=== PATIENT | male | born 1985 | race Caucasian/White ===

== ENCOUNTER 2018-01-18 06:06 | Day surgery (SDC) | payer SELFPAY ==
[2018-01-18] VITALS (7 sets, daily range): BP systolic 96–121; BP diastolic 58–74; PULSE 58–71; RESP 16–18; TEMP 36.6–37.1; O2SAT 96–99; BMI 22.8
--- NOTE | 2018-01-18 | COLBX_PTH ---
PATIENT: TATO CHAPARRO LOC: EN U#:[id number] AGE/SX: 32/M ROOM: RE01/18/[address]: Dr. Madhu Nelson MD : 1985 BED: DIS: 01/18/2018 SPEC #: [id number] RECD: 01/18/18 11:29 STATUS: AKBAR VANESSA #: [id number] RUMA: 01/18/18 00:[address]: Madhu Nelson DEPT: SURGICAL PATHOLOGY RECD BY: Andrae Goff ENTERED: 01/18/18 11:56 SP TYPE: COLON BX MISHA DR: Alissa Arevalo, PASTE MAKER-C Tissues: COLON BIOPSY Procedures: Surgery Specimen Level IV HEADER OPERATION: Colonoscopy PRE-OP DIAGNOSIS: Constipation TISSUE SUBMITTED: Random colonic biopsy MICROSCOPIC DIAGNOSIS Colon, random biopsy: Melanosis coli. AM:sanaz 01/19/18 MICROSCOPIC DESCRIPTION Slides are reviewed. GROSS DESCRIPTION Received in fixative is one container labeled with the patient's name and designated random colonic biopsy. The specimen consists of multiple irregular fragments of light [place] soft tissue that in aggregate measure 1.5 x 1 x 0.1 cm. The specimen is totally submitted in one cassette. / SJ:sanaz 01/18/18 TC:5 CPT: 83628
--- NOTE | 2018-01-18 07:15 | OP.PCM_ITS ---
Problem List (1) Constipation Status: Acute Qualifiers: Constipation type: unspecified constipation type Qualified Code(s): K59.00 - Constipation, unspecified Report of Operation Date of Procedure: 01/18/18 Pre-Operative Diagnosis: Constipation, intermittent rectal bleeding Post-Operative Diagnosis: Melanosis coli Surgery/Procedure Performed:: Colonoscopy with random colonic biopsies Description of Surgical Findings:: Timeout and informed consent was obtained. 32-year-old gentleman was taken to the endoscopy suite. He was placed in the left lateral decubitus position. Throughout the procedure in aliquots he received a total of 100 mg Demerol and 3.5 mg of Versed is intravenous sedation. Digital rectal exam performed. Normal external inspection of the anus. Very minimal internal hemorrhoids. 2+ smooth prostate. No mass lesions. Flexible colonoscope inserted in the rectum advanced with minimally tortuous sigmoid colon. The scope was then readily advanced through the transverse colon and into the ascending colon and cecum. Bowel prep was adequate there was some liquid stool but that could be aspirated free. The cecum ileocecal valve was nicely achieved. It is of note that throughout the colon darkening of the mucosa was identified consistent with melanosis coli. The scope was carefully withdrawn from the ascending transverse descending and sigmoid colon. Random colonic biopsies are obtained. This was done with cold forceps. There were no polyps or mass lesions. The scope was retroflexed within the rectum. There was no evidence of active bleeding. Very minimal internal hemorrhoids. Impression No acute colonic findings. Diffuse melanosis coli identified. Random colonic biopsies pending. Minimal internal hemorrhoids. The patient has never had a previous colonoscopy. Recommendations will be made to stop cascara like laxative products. He will be encouraged to utilize a daily fiber supplement and he may utilize to relax or similar product as needed. Next routine screening colonoscopy would be at age 48. Cc: [facility] Medications were given at 0654. The scope was inserted 0657. The cecum was reached at 0701.39. The procedure was completed at 0708. Madhu Nelson M.D., F.A.C.S. Type of Anesthesia:: IV Sedation
== END 2018-01-18 08:04 | disposition home or self-care (01) ==
LOC: EN 06:07 → AC 06:08
PROVIDERS: Family Provider Nurse Practitioner Family; PCP Nurse Practitioner Family; Visit Provider Surgery
PROC: 0DJD8ZZ Inspection of Lower Intestinal Tract, Via Natural or Artificial Opening Endoscopic (ICD-10-PCS; CPT 45378; principal; 2018-01-18 06:55)
DX: K63.89 Other specified diseases of intestine (principal); K64.8 Other hemorrhoids; K59.00 Constipation, unspecified; K62.5 Hemorrhage of anus and rectum; Z80.0 Family history of malignant neoplasm of digestive organs
CPT/HCPCS: 45380; 88305; 99152; 99153; J7120